=== PATIENT | female | born 1965 | race American Indian/Alaskan Native ===

== ENCOUNTER 2017-06-15 10:01 | Outpatient (CLI) | payer BC ==
--- NOTE | 2017-06-16 09:37 | Mammography Report ---
Bilateral mammogram: Compared to 12/01/15. CAD study utilized. Findings: Predominance adipose tissue bilaterally. No mass or microcalcification. Normal axilla. Impression: Benign findings. Annual followup recommended. BI-RADS CATEGORY: 2 = Benign ACR BI-RADS MAMMOGRAPHIC CODES: 0 = Needs additional imaging evaluation; 1 = Negative; 2 = Benign; 3 = Probably benign; 4 = Suspicious; 5 = Malignant; 6 = Known biopsy-proven malignancy COMMENT: 1. Dense breast tissue, i.e., adenosis, fibrocystic changes, etc., may obscure an underlying neoplasm. 2. Approximately 10% of cancers are not detected with mammography. 3. A negative mammography report should not delay biopsy if a clinically suspicious mass is present. COMMENT: Patient follow-up letters are generated in [employer].
== END 2017-06-15 10:02 | disposition home or self-care (01) ==
LOC: MAMMO 10:01
PROVIDERS: ATTEND Family Medicine Adult Medicine
DX: Z12.31 Encounter for screening mammogram for malignant neoplasm of breast (principal)
CPT/HCPCS: 77067; G0202

== ENCOUNTER 2017-07-19 09:07 | Outpatient (CLI) | payer BC ==
--- NOTE | 2017-07-19 21:23 | XRay Report ---
FINAL REPORT PROCEDURE: Lumbar sacral spine series TECHNIQUE: Lumbar spine radiographs, including AP, lateral, oblique, and lumbosacral spot views. HISTORY: HX LUMBAR FUSION,LUMBAR PAIN COMPARISON: No prior studies are available for comparison. FINDINGS: No fracture is visualized. There is grade 1 spondylolisthesis L4 in relation L5 which appears degenerative. The disc space is narrowed and there is a vacuum disc phenomena consistent with moderate degenerative disc disease. I do not see evidence of spondylolysis. Moderate facet arthritis visualized in the lower lumbar spine. Small marginal osteophytic spurs are visualized L2-3, L3-4 and the L4-5 disc spaces. There is partial sacralization of the L5 vertebral body. Surgical clips visualized in the right upper quadrant and overlying upper pelvis posteriorly. IMPRESSION: Degenerative disc disease and facet arthritis as described. No fracture is visualized. Grade 1 spondylolisthesis L4 in relation L5 is visualized which appears degenerative. No evidence of spondylolysis. There is partial sacralization of the L5 vertebral body, normal variant. Postsurgical changes are present as described.
== END 2017-07-19 09:08 | disposition home or self-care (01) ==
LOC: SPVIMAG 09:07
PROVIDERS: ATTEND Physical Medicine & Rehabilitation
DX: M51.36 Other intervertebral disc degeneration, lumbar region (principal); M43.16 Spondylolisthesis, lumbar region; M46.86 Other specified inflammatory spondylopathies, lumbar region; Z98.1 Arthrodesis status
CPT/HCPCS: 72114